=== PATIENT | male | born 1995 | race African-American/Black ===

== ENCOUNTER 2017-11-23 21:00 | Emergency (ER) | payer MEDICAID ==
[~2017-11-23] VITALS: Ht 188 cm; Wt 102.1 kg
[2017-11-23 21:38] VITALS: BP 134/85
[2017-11-23] MEDS ORDERED: IBUPROFEN600 MG ORAL (21:45)
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
[2017-11-23 22:10] VITALS: BP 134/85
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
== END 2017-11-23 22:10 | disposition home or self-care (01) ==
LOC: EMR 21:42
DX: S80.11XA Contusion of right lower leg, initial encounter (principal); S39.012A Strain of muscle, fascia and tendon of lower back, initial encounter; V43.62XA Car passenger injured in collision with other type car in traffic accident, initial encounter; Y92.410 Unspecified street and highway as the place of occurrence of the external cause
CPT/HCPCS: 72020; 99283